=== PATIENT | female | born 1945 | race Asian ===

== ENCOUNTER 2020-02-07 13:53 | Emergency (ER) | payer OTHER ==
[~2020-02-07] VITALS: Ht 157.5 cm; Wt 56.7 kg
[2020-02-07 16:08] VITALS: BP 175/92
== END 2020-02-07 16:14 | disposition home or self-care (01) ==
LOC: ER 13:53
DX: S01.81XA Laceration without foreign body of other part of head, initial encounter (principal); I10 Essential (primary) hypertension; Z88.1 Allergy status to other antibiotic agents; Z88.8 Allergy status to other drugs, medicaments and biological substances; Z88.6 Allergy status to analgesic agent; Z88.2 Allergy status to sulfonamides; W01.198A Fall on same level from slipping, tripping and stumbling with subsequent striking against other object, initial encounter; Y93.02 Activity, running; Y92.89 Other specified places as the place of occurrence of the external cause; Y99.8 Other external cause status